=== PATIENT | male | born 1965 | race Caucasian/White ===

== ENCOUNTER 2016-11-12 07:54 | Day surgery (SDC) | payer OTHER ==
[~2016-11-12] VITALS: Ht 180.3 cm; Wt 100.0 kg
[~2016-11-12 07:54] MED LIST: 0.9% Sodium Chloride 1,000 ML IV SCH; AMLO10TA3 PO; ASPI-973 PO; CA C1TAB86 PO; CHOL10008 PO; DICL100G8 TOPICAL; FLUO120C4 TOPICAL; GARL1000 PO; HYDR-4003 PO; HYDR25TA4 PO; LORA10CA PO; METF500T4 PO; OMEG-38 PO; Sodium Chloride LOK Flush 10 mL Syringe IV PRN; UBID50TA3 PO; VIT1TABL81 PO; fentaNYL-PF 50 mCg/mL 2 mL Inj IVPUSH PRN
[2016-11-12 08:23] VITALS: BP 135/91; PULSE 85; RESP 17; O2SAT 98
[2016-11-12 09:15] VITALS: BP 128/92; PULSE 87; RESP 16; O2SAT 92
[2016-11-12 09:25] VITALS: BP 121/87; PULSE 83; RESP 16; O2SAT 91
[2016-11-12 09:27] VITALS: BP 121/87; PULSE 85; RESP 16; O2SAT 94
[2016-11-12 09:41] VITALS: BP 142/83; PULSE 89; RESP 16; O2SAT 93
--- NOTE | 2016-11-12 20:55 | ENDO ---
[address] [address] ENDOSCOPY PROCEDURE PATIENT: JOSHUA RUANO : 1965 MR#: [id number] ADMIT: 11/12/2016 JOB ID: [id number] PRIMARY PROVIDER: Esteban Moe MD. PROCEDURE: Colonoscopy with biopsy. INDICATIONS: A 51-year-old male who was found to have right-sided Crohn's. Had a screening colonoscopy about two years ago. He did not do well with Pentasa nor sulfasalazine. He is using turmeric and wheat grass juice while trying to avoid nonsteroidal anti-inflammatories. He returns for surveillance to determine whether the inflammation has diminished or disappeared. EQUIPMENT: PCF-H180 AL. SEDATION: 4 mg Versed, 75 mcg fentanyl. COMPLICATIONS: None identified. BOWEL PREPARATION: Fair. Adequate exam. PROCEDURE INFORMATION: After the risks and benefits were explained, written and verbal informed consent was obtained, the patient was brought into the endoscopy suite and placed into the left lateral decubitus position. Sedation was achieved as above. A digital rectal examination was accomplished. No significant pathology appreciated. The scope was introduced into the rectum and advanced to the cecum as identified by the appendiceal orifice and ileocecal valve. The terminal ileum was briefly accessed. The scope was then slowly withdrawn to carefully examine the mucosa for any defects or lesions. Retroflexed views were accomplished in the rectum. The colon was decompressed. The scope removed from the patient who tolerated the procedure well. FINDINGS: The terminal ileal mucosa demonstrated a small erosion but was otherwise within normal limits. Again, there was evidence of [id number] inflammatory activity, mostly concentrated in and around the hepatic flexure with a few scattered erosions even into the ascending colon and cecum. Otherwise, mucosa was normal from proximal transverse all the way down to rectum. We repeated biopsies from the inflamed-appearing mucosa in the right colon. I did not otherwise see any significant polyps, mass lesions, or other pathology, including retroflexed views from within the rectum. ENDOSCOPIC DIAGNOSIS: 1. Segmental right colon chronic inflammation. 2. Mild terminal ileal inflammation. RECOMMENDATIONS: 1. Await histopathology. 2. The patient is presently asymptomatic and will be brought back to the office to discuss more advanced therapies. At this point, the risk of drug intervention may outweigh the risk of simply monitoring this expectantly in that he is doing quite well symptomatically for the moment. 3. Repeat colonoscopy in no later than five years considering findings today and two years ago.
--- NOTE | 2016-11-13 11:14 | PATH ---
SURGICAL PATHOLOGY Attending Physician:Freddy Engel CASE STATUS: Signed Out PATIENT NAME: JOSHUA RUANO PID: [id number] : 1965 DATE COLLECTED:11/12/2016 16:38 SPECIMEN: Colon, Biopsy CLINICAL HISTORY: 1). RIGHT COLON BIOPSY FINAL DIAGNOSIS: 1.RIGHT COLON BIOPSY: CHANGES OF DIFFUSE CHRONIC ACTIVE COLITIS WITH CRYPTITIS AND FOCAL CRYPT ABSCESS AND FOCAL ULCERATION. NEGATIVE FOR DYSPLASIA AND MALIGNANCY. NOTE: The changes present here are consistent with those of primary inflammatory bowel disease, and although nonspecific, they are suggestive of chronic active ulcerative colitis. ICD10 code K51.9 GROSS DESCRIPTION: The specimen is received in one formalin filled container labeled with the patient's name, sublabeled "right colon" and consists of 3 portions of tissue which aggregate to 0.4 x 0.3 x 0.3 CM. The specimen is entirely submitted in one cassette. 11/12/2016 DAC MICRO DESCRIPTION: See diagnosis. ICD-9 CODES: CPT CODES: 1: 79960 Electronically Signed Out Rocky Smart MD [facility] [address], [place] [address] Technical component performed at [facility], [address] [place] [address] [address], [place], [address]
== END 2016-11-12 23:59 | disposition home or self-care (01) ==
LOC: END 07:54
PROVIDERS: ATTEND Internal Medicine Gastroenterology
DX: K51.90 Ulcerative colitis, unspecified, without complications (principal); K63.89 Other specified diseases of intestine; I10 Essential (primary) hypertension; E78.5 Hyperlipidemia, unspecified; E11.9 Type 2 diabetes mellitus without complications; M17.0 Bilateral primary osteoarthritis of knee; Z79.82 Long term (current) use of aspirin; Z79.84 Long term (current) use of oral hypoglycemic drugs
CPT/HCPCS: 45380; G0500; J2250; J3010; J7030